=== PATIENT | male | born 1995 | race Two or more races ===

== ENCOUNTER 2023-07-25 19:28 | Emergency (ER) | payer OTHER ==
[~2023-07-25] VITALS: Ht 167.6 cm; Wt 59.0 kg
[2023-07-25 20:11] VITALS: TEMP 98.9
[2023-07-25] MEDS ORDERED: FAMOTIDINE (20 MG) 20 MG TABLET ONE (20:22)
[2023-07-25] MEDS ORDERED: LIDOCAINE VISCOUS 2% UD 15 ML UDC ONE (20:22)
[2023-07-25] MEDS ORDERED: MAG HYDROX/AL HYDROX/SIMETH 30 ML UDC ONE (20:22)
[2023-07-25] MEDS: MAG HYDROX/AL HYDROX/SIMETH 30 ML UDC PO ONE (20:25)
[2023-07-25] MEDS: FAMOTIDINE (20 MG) 20 MG TABLET PO ONE (20:25)
[2023-07-25] MEDS: LIDOCAINE VISCOUS 2% UD 15 ML UDC MM ONE (20:25)
[2023-07-25 20:26] VITALS: BP 126/77; O2SAT 100
[2023-07-25] MEDS ORDERED: PANT40TA2 PO (20:43)
== END 2023-07-25 20:55 | disposition home or self-care (01) ==
LOC: ER 19:38
DX: R10.13 Epigastric pain (principal); K21.9 Gastro-esophageal reflux disease without esophagitis

== ENCOUNTER 2023-08-11 17:03 | Emergency (ER) | payer OTHER ==
[~2023-08-11] VITALS: Ht 170.2 cm; Wt 59.0 kg
[~2023-08-11 17:03] MED LIST: PANT40TA2 PO
[2023-08-11 19:22] VITALS: BP 140/89; TEMP 97.6; O2SAT 100
== END 2023-08-11 19:23 | disposition home or self-care (01) ==
LOC: ER 17:06
DX: R06.02 Shortness of breath (principal); R05.9 Cough, unspecified
CPT/HCPCS: 71045-TC